=== PATIENT | male | born 2000 ===

== ENCOUNTER 2022-10-17 08:10 | Emergency (ER) | payer OTHER, SELFPAY ==
[2022-10-17 08:21] VITALS: BP 115/75; PULSE 84; TEMP 37; O2SAT 97; BMI 25.8
--- NOTE | 2022-10-17 09:01 | ED_ITS ---
HPI - General Adult General Date Seen: 10/17/22 Chief complaint: Flank Pain Stated complaint: Kidney pain after taking Ibuprofen and alcohol Time Seen by Provider: 10/17/22 08:36 Source: patient Mode of arrival: ambulatory Limitations: no limitations History of Present Illness HPI narrative: Patient is 22-year-old gentleman who presents ambulatory to the emergency room with a variety complaints, he has had some left shoulder discomfort for number of weeks, and some left lower back issues. He took some alcohol last night, and had some ibuprofen also for his various ailments, and read that this was bad as a combination. He presents here to the emergency room for the fact is he thinks he injured his kidneys by having the alcohol and the ibuprofen together. He denies any nausea vomiting, he has no black stools, he has no abdominal pain. He has a [employer] student, and has been taking judo classes the last couple months and feels that the irritation is from that. Denies fevers chills or sweats, no other rashes, Related Data Allergies Allergy/AdvReac Type Severity Reaction Status Date / Time No Known Drug Allergies Allergy Verified 10/17/22 08:21 Review of Systems Status of ROS: Reports: 10 or more systems reviewed and unremarkable except as noted in History and below [facility] Social History Smoking Status: Current some day smoker Do you use any of these nicotine containing products: Vaping Products Second hand tobacco smoke exposure: No How often do you have a drink containing alcohol: 2-4 times a month How many standard drinks containing alcohol do you have on a typical day: 5 or 6 How often do you have six or more drinks on one occasion: Monthly AUDIT-C Alcohol total score: 6 Non-prescribed substance use: denies use service: No Exam Narrative: Exam Narrative: Examination he is seen in room 4, he is in no apparent distress he is able to get up stand walk around, forward flexion is entirely normal with no palpable pain over his L-spine he has some left-sided flank discomfort, when I percuss over that area. And is to the left and the right he notices some discomfort, the pain does not radiate down his legs. His chest is good air entry bilaterally with no wheezing crackles noted heart sounds are normal his abdomen is otherwise soft and scaphoid, well muscled with no tenderness to palpation and no masses, his left shoulder has full range of motion of extension, internal external rotation, abduction and adduction. Does not yield any significant signs of issues, any symmetrical bilaterally with his of any bruising, he tells me his tenderness is in his traps bilaterally, and he has no neck pain or stiffness, no history of falls Const: Vital Signs, click to edit/add: Vital Signs - 24 hr 10/17/22 08:21 Temperature 98.6 F Pulse Rate [Pulse Oximeter] 84 Blood Pressure [Le ft Upper Arm] 115/75 Pulse Oximetry 97 Oxygen Delivery Me thod Room Air Course Course Hospital Course: I explained to the patient that we will do urinalysis but he has not done himself significant harm by combining ibuprofen and alcohol, I would suggest that he would not use the ibuprofen, on chronically for aches and pains. As over the time this can cause some issues primarily with the stomach. A better option would be a see primary care and consideration of other options for his back and also shoulder issues. I will however do urinalysis he ate ensure that he has no other issues ongoing. He was very comfortable this plan Reevaluation(s) Reevaluation #1: Explained to the patient that his laboratory test was normal I believe that this is more medical anxiety over his condition, and the fact that he combined alcohol and ibuprofen, I told him that he is going to be okay I just would use ibuprofen on a chronic long-term basis. Follow-up with established with primary care physician, for other issues. Time: 10:15 Vital Signs Vital signs: Initial Vital Signs Temperature 98.6 F 10/17/22 08:21 Temperature Source Temporal Artery Scan 10/17/22 08:21 Pulse Rate 84 10/17/22 08:21 Pulse Rhythm 10/17/22 08:21 Blood Pressure 115/75 10/17/22 08:21 Blood Pressure Mean 88 10/17/22 08:21 Blood Pressure Position Sitting 10/17/22 08:21 Pulse Oximetry 97 10/17/22 08:21 Oxygen Delivery Method 10/17/22 08:21 Vital Signs Temperature 98.6 F 10/17/22 08:21 Pulse Rate 84 10/17/22 08:21 Blood Pressure 115/75 10/17/22 08:21 Pulse Oximetry 97 10/17/22 08:21 Oxygen Delivery Method 10/17/22 08:21 Temperature 98.6 F 10/17/22 08:21 Pulse Rate 84 10/17/22 08:21 Blood Pressure 115/75 10/17/22 08:21 Pulse Oximetry 97 10/17/22 08:21 Oxygen Delivery Method 10/17/22 08:21 Medical Decision Making MDM Narrative Medical decision making narrative: During this evaluation I considered multiple diagnosis including GI sources such as ulcer, gastritis, gallbladder issues, I also considered musculoskeletal issues, kidney Medical Records Medical records reviewed: Yes I reviewed the patient's medical records Lab Data Lab results reviewed: Yes I reviewed the patient's lab results Labs: Lab Results 10/17/22 Range/Units 08:47 Urine Color Yellow (Yellow) Urine Appearance Clear (Clear) Urine pH 5.5 (5.0-8.5) Ur Specific [place] 1.025 (1.000-1.030) Urine Protein Negative (Negative) Urine Glucose (UA) Negative (Negative) Urine Ketones Negative (Negative) Urine Blood Trace-lysed A (Negative) Urine Nitrite Negative (Negative) Urine Bilirubin Negative (Negative) Urine Urobilinogen 1.0 (0.2-1.0) Ur Leukocyte Esterase Negative (Negative) Urine RBC 0-2 (0-2) Urine WBC 0-2 (0-5) Ur Squamous Epith Cells None (None-Few) Urine Bacteria None (None) Discharge Plan Discharge Clinical Impression: Acute left flank pain Patient Disposition: Home, Self-Care Condition: Stable Instructions: Flank Pain (ED) Additional Instructions: Your urinalysis is entirely normal, I would think that your left-sided pain is related to exercising, as this seems to be musculoskeletal. I would recommend follow-up with the primary care physician to discuss issues associated with your shoulder in your left back region, it is not good to combine alcohol with medications but it is safe to use ibuprofen and alcohol irregularly at times. Follow Up/Referrals: Talha Nolen MD [Staff Physician] - Stand Alone Forms: [employer] Info Instructions
[2022-10-17 09:22] LABS: Appearance Urine Clear (Clear); Bilirubin Urine Negative (Negative); Blood Urine Trace-lysed (Negative); Color Urine Yellow (Yellow); Glucose Urine Negative (Negative); Ketones Urine Negative (Negative); Leukocyte Esterase Urine Negative (Negative); Nitrite Urine Negative (Negative); Protein Urine Negative (Negative); Specific Gravity Urine 1.025 (1.000-1.030); pH Urine 5.5 (5.0-8.5)
[2022-10-17 09:28] LABS: RBC Urine 0-2 (0-2); WBC Urine 0-2 (0-5)
== END 2022-10-17 10:20 | disposition home or self-care (01) ==
PROVIDERS: Emergency Provider Family Medicine
DX: R10.9 Unspecified abdominal pain (principal)
CPT/HCPCS: 81001; 99282; 99283

== ENCOUNTER 2023-01-13 20:41 | Emergency (ER) | payer OTHER, SELFPAY ==
[2023-01-13 20:59] VITALS: BP 142/82; PULSE 97; RESP 18; TEMP 36.9; O2SAT 96; BMI 26.1
--- NOTE | 2023-01-13 21:16 | ED_ITS ---
HPI - General Adult General Chief complaint: Nose Injury/Pain Stated complaint: Possible broken nose Time Seen by Provider: 01/13/23 21:07 History of Present Illness HPI narrative: Patient is a 22-year-old gentleman who studies [employer]. He was wrestling another student and received blow to the nose. It epistaxis on the right hand side which has stopped he has some swelling on the bridge of his nose but no skin breakdown. He is able to breathe through his nose without difficulty but there is somewhat of deviation to the left. Patient has a previous nasal fracture in the past. Patient did not receive significant blow to the head. He did not lose consciousness his pain is only minimal. Patient is concerned that his nasal injury needs acute treatment. He believes his tetanus shot is up-to-date. No other concerns are noted. The injury occurred immediately prior to coming to the emergency room. Related Data Home Medications Medication Instructions Recorded Confirmed No Known Home Medications 01/13/23 01/13/23 Allergies Allergy/AdvReac Type Severity Reaction Status Date / Time No Known Drug Allergies Allergy Verified 01/13/23 21:02 Review of Systems Status of ROS: Reports: 10 or more systems reviewed and unremarkable except as noted in History and below PFSH PFS Social History Smoking Status: Current some day smoker Do you use any of these nicotine containing products: Vaping Products Second hand tobacco smoke exposure: No How often do you have a drink containing alcohol: 2-4 times a month How many standard drinks containing alcohol do you have on a typical day: 5 or 6 How often do you have six or more drinks on one occasion: Monthly AUDIT-C Alcohol total score: 6 Non-prescribed substance use: denies use service: No Exam Narrative: Exam Narrative: EXAM GENERAL: Patient appears comfortable and well. EYES: No scleral icterus. ENT: Tympanic membranes and oropharynx normal. The nose does have some slight deviation to the left no obvious epistaxis. No bony crepitus. Zygomatic arch is normal no signs of facial fracture. THYROID: no thyroid nodules or thyromegaly. LYMPH: No supraclavicular or cervical lymphadenopathy. SKIN: Visible skin seen during exam normal or with benign process only. EXT: No dependent lower extremity pedal edema. HEART: Regular rate and rhythm with no murmurs, rubs, or gallops. LUNGS: Clear to auscultation bilaterally with no crackles or wheezes. ABD: Soft, non tender, non distended. PSYCH: Good eye contact, speech is not pressured. Const: Vital Signs, click to edit/add: Vital Signs - 24 hr 01/13/23 20:59 Temperature 98.4 F Pulse Rate [Pulse Oximeter] 97 Respiratory Rate 18 Blood Pressure [Ri ght Upper Arm] 142/82 H Pulse Oximetry 96 Oxygen Delivery Me thod Room Air Course Vital Signs Vital signs: Initial Vital Signs Temperature 98.4 F 01/13/23 20:59 Temperature Source Temporal Artery Scan 01/13/23 20:59 Pulse Rate 97 01/13/23 20:59 Pulse Rhythm Regular 01/13/23 20:59 Pulse Strength 3+ Normal 01/13/23 20:59 Respiratory Rate 18 01/13/23 20:59 Blood Pressure 142/82 H 01/13/23 20:59 Blood Pressure Mean 102 01/13/23 20:59 Blood Pressure Position Sitting 01/13/23 20:59 Pulse Oximetry 96 01/13/23 20:59 Oxygen Delivery Method Room Air 01/13/23 20:59 Vital Signs Temperature 98.4 F 01/13/23 20:59 Pulse Rate 97 01/13/23 20:59 Respiratory Rate 18 01/13/23 20:59 Blood Pressure 142/82 H 01/13/23 20:59 Pulse Oximetry 96 01/13/23 20:59 Oxygen Delivery Method Room Air 01/13/23 20:59 Temperature 98.4 F 01/13/23 20:59 Pulse Rate 97 01/13/23 20:59 Respiratory Rate 18 01/13/23 20:59 Blood Pressure 142/82 H 01/13/23 20:59 Pulse Oximetry 96 01/13/23 20:59 Oxygen Delivery Method Room Air 01/13/23 20:59 Medical Decision Making MDM Narrative Medical decision making narrative: We did have a nice discussion about likely outcomes. I did given the option of having CT now. He would like to decline and I do think that is reasonable. I did give him my card he will follow-up with me by phone externally set him up with Ear Nose Throat if he has further trouble. I do recommend ice Tylenol Motrin and close follow-up. Will call me if he develops any other difficulties in the interim. Discharge Plan Discharge Clinical Impression: Injury of nose Patient Disposition: Home, Self-Care Condition: Stable Instructions: Nasal Contusion (ED) Additional Instructions: Ice Tylenol Motrin Follow-up with Dr. Abrams as needed Activity Level: No Restrictions Discharge Diet: Regular Prescriptions: No Action No Known Home Medications Follow Up/Referrals: Provider,Not a Local [Primary Care Provider] - Stand Alone Forms: [employer] Info Instructions
== END 2023-01-13 21:34 | disposition home or self-care (01) ==
LOC: ED 21:33
PROVIDERS: Emergency Provider Internal Medicine
DX: S09.92XA Unspecified injury of nose, initial encounter (principal); X58.XXXA Exposure to other specified factors, initial encounter; Y93.72 Activity, wrestling
CPT/HCPCS: 99283

== ENCOUNTER 2024-06-30 12:36 | Emergency (ER) | payer OTHER, SELFPAY ==
[2024-06-30 13:10] VITALS: BP 121/81; PULSE 81; RESP 16; TEMP 36.8; O2SAT 96; BMI 25.9
--- NOTE | 2024-06-30 13:17 | CRLHL7_ITS ---
For Patients: As a result of the Cures Act, medical imaging exams and procedure reports are released immediately into your electronic medical record. You may view this report before your referring provider. If you have questions, please contact your health care provider. Indication: Hand injury, punched wall. Technique: Three view(s) of the right hand. Comparison: None available. Findings: There is an acute angulated fracture involving the 5th metacarpal neck which does not appear to extend into the metacarpophalangeal joint. On frontal view there is linear lucency along the radial base of the 4th metacarpal which is favored to be artifactual. No additional findings to suggest fracture. Alignment is otherwise anatomic. Joint spaces are maintained. Dorsal hand soft tissue swelling. Impression: 1. Angulated 5th metacarpal neck fracture. 2. Linear lucency along the radial base of the 4th metacarpal is favored to be artifactual. Recommend correlation for pain in this region. Dictated by Elena Hill MD @ 06/30/2024 1:58:21 PM (Electronically Signed)
--- NOTE | 2024-06-30 13:39 | ED_ITS ---
HPI - General Adult General Chief complaint: Extremity Pain/Injury, Upper Stated complaint: RT hand injury Time Seen by Provider: 06/30/24 12:52 History of Present Illness HPI narrative: Punched a wall with his right hand. Happened last night. Cannot move pinky finger. Hand is swollen in triage. 0/ 10 without moving, 8/10 with any movement. Concentrated to the knuckle. 24-year-old young man presenting to the emergency department with right hand pain after he punched a wall last night. He is having trouble opening his hand particularly his little finger. He says he was just feeling overwhelmed with a number of things. 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 Offers that this was a foolish thing to do. No other injuries sustained. Related Data Home Medications ?Medication ?Instructions ?Recorded ?Confirmed No Known Home Medications 01/13/23 09/07/23 Allergies Allergy/AdvReac Type Severity Reaction Status Date / Time No Known Drug Allergies Allergy Verified 06/30/24 13:15 Review of Systems Status of ROS: Reports: 6 or more systems reviewed and unremarkable except as noted in History and below PFSH PFS Social History Smoking Status: Current some day smoker Do you use any of these nicotine containing products: Vaping Products Second hand tobacco smoke exposure: No How often do you have a drink containing alcohol: 2-4 times a month How many standard drinks containing alcohol do you have on a typical day: 5 or 6 How often do you have six or more drinks on one occasion: Monthly AUDIT-C Alcohol total score: 6 Non-prescribed substance use: denies use service: No Exam Narrative: Exam Narrative: Pleasant. Of good energy. Skin is warm and dry. Swelling over the dorsum ulnar side of his right hand. He is favoring this aspect of the hand. Quite a bit of tenderness over the MCP joint area of the 5th finger. Able to open and close his hand but it is quite tender Const: Vital Signs, click to edit/add: Vital Signs - 24 hr 06/30/24 13:10 Temperature 98.3 F Pulse Rate [Pulse Oximeter] 81 Respiratory Rate 16 Blood Pressure [Ri ght Upper Arm] 121/81 Pulse Oximetry 96 Oxygen Delivery Me thod Room Air Documenting provider has reviewed patient's vital signs: yes Course Vital Signs Vital signs: Initial Vital Signs Temperature 98.3 F 06/30/24 13:10 Temperature Source Temporal Artery Scan 06/30/24 13:10 Pulse Rate 81 06/30/24 13:10 Pulse Rhythm Regular 06/30/24 13:10 Pulse Strength 3+ Normal 06/30/24 13:10 Respiratory Rate 16 06/30/24 13:10 Blood Pressure 121/81 06/30/24 13:10 Blood Pressure Mean 94 06/30/24 13:10 Blood Pressure Position Sitting 06/30/24 13:10 Pulse Oximetry 96 06/30/24 13:10 Oxygen Delivery Method Room Air 06/30/24 13:10 Vital Signs Temperature 98.3 F 06/30/24 13:10 Pulse Rate 81 06/30/24 13:10 Respiratory Rate 16 06/30/24 13:10 Blood Pressure 121/81 06/30/24 13:10 Pulse Oximetry 96 06/30/24 13:10 Oxygen Delivery Method Room Air 06/30/24 13:10 Temperature 98.3 F 06/30/24 13:10 Pulse Rate 81 06/30/24 13:10 Respiratory Rate 16 06/30/24 13:10 Blood Pressure 121/81 06/30/24 13:10 Pulse Oximetry 96 06/30/24 13:10 Oxygen Delivery Method Room Air 06/30/24 13:10 Medical Decision Making MDM Narrative Medical decision making narrative: I would anticipate having sustained a sort of ?boxer's fracture?. By my read there appears to be angulated fracture of the 5th metacarpal neck. Three view(s) of the right hand. Comparison: None available. Findings: There is an acute angulated fracture involving the 5th metacarpal neck which does not appear to extend into the metacarpophalangeal joint. On frontal view there is linear lucency along the radial base of the 4th metacarpal which is favored to be artifactual. No additional findings to suggest fracture. Alignment is otherwise anatomic. Joint spaces are maintained. Dorsal hand soft tissue swelling. Impression: 1. Angulated 5th metacarpal neck fracture. 2. Linear lucency along the radial base of the 4th metacarpal is favored to be artifactual. Recommend correlation for pain in this region. Anticipating placement of an ulnar gutter splint, have spoken with Orthopedics In agreement with plan for ulnar gutter splint and follow up. May actually move quickly to juan taping to encourage mobility. I did place this ortho glass ulnar gutter splint as recommended. Tolerated quite well. See patient discharge plan for further discussion Medical Records Medical records reviewed: Yes I reviewed the patient's medical records Discharge Plan Discharge Clinical Impression: Closed fracture of 5th metacarpal Patient Disposition: Home, Self-Care Condition: Stable Additional Instructions: You have a fracture of the neck of the 5th metacarpal. I spoke to Orthopedics, specifically Dr. Montero, today. In addition to temporary splinting as we have done here today, recommendations are to follow up with them for reassessment in 7-10 days. Call phone #[phone] to schedule follow-up with Orthopedics. Elevate for comfort. Ibuprofen, acetaminophen. Prescriptions: No Action No Known Home Medications Follow Up/Referrals: Provider,Not a Local [Primary Care Provider] - Stand Alone Forms: [employer] Info Instructions
== END 2024-06-30 14:21 | disposition home or self-care (01) ==
LOC: ED 14:10
PROVIDERS: Emergency Provider Family Medicine
DX: S62.336A Displaced fracture of neck of fifth metacarpal bone, right hand, initial encounter for closed fracture (principal); W22.09XA Striking against other stationary object, initial encounter
CPT/HCPCS: 29125; 73130; 99283; 99284